=== PATIENT | male | born 2000 | race Caucasian/White ===

== ENCOUNTER 2024-10-12 15:31 | Emergency (ER) | payer MEDICAID, SELFPAY ==
[2024-10-12 15:33] VITALS: BP 136/90; BMI 32.6
[2024-10-12 16:12] LABS: COVID-19 Antigen Negative (Negative)
--- NOTE | 2024-10-12 16:16 | ED.GENMED ---
History of Present Illness
General
Chief Complaint: Cold/Flu/URI Symptoms
Source: patient
Exam Limitations: none
Time Seen by Provider: 10/12/24 15:38
Nursing documentation reviewed up to this point in time: agreed with
History of Present Illness
History of Present Illness:
Patient to ED with complaint of fever, bodyaches, cough. States cough is causing vomiting. Symptoms started 2 days ago. To eD accompanied by family for eval.
Past History
Past History
ED Past Medical History: None
ED Past Surgical History: None
Review of Systems
Review of Systems
Allergies reviewed?: Yes
All Other Systems: ROS reviewed and negative except as documented in HPI and ROS
Constitutional: Reports fever, fatigue and other (Generalized body aches.)
EENT: Reports no symptoms
Respiratory: Reports cough
Cardiac: Reports no symptoms
ABD/GI: Reports no symptoms
: Reports no symptoms
Musculoskeletal: Reports no symptoms
Skin: Reports no symptoms
Neurological: Reports no symptoms
Psychiatric: Reports no symptoms
Phy Exam
General Physical Exam
General Presentation: mild distress
General age: appears stated age
General Skin: warm and dry
General Habitus: normal
General Mental: alert
ENT Exam
ENT Exam: EOMI, pharynx normal, normocephalic and swallowing well
Cardiovascular Exam
Cardiovascular Exam: regular rate/rhythm
Pulmonary Exam
Pulmonary Exam: lungs clear and no respiratory distress
Gastrointestinal Exam
Gastrointestinal Exam: non tender and soft
Musculoskeletal Exam
Musculoskeletal Exam: full ROM and neuro vasc intact
Skin Exam
Skin Exam: normal color, warm/dry and no rash
Psychiatric Exam
Psychiatric Exam: normal mood/affect
Course
Orders/Labs/Results
Orders:
Orders
10/12/24 15:44
COVID-19 Antigen Urgent
Source: Nasal Swab
Influenza A+B Rapid Molecular Urgent
CHLOE Source: Nasal Swab
Specimen Description:
10/12/24 16:09
CR Chest - 2 Views Urgent
Comment:
Reason For Exam: fever, cough
10/12/24 16:15
Oseltamivir Phosphate [Tamiflu] 75 mg PO NOW STA
Vital Signs
Initial and Last Documented VS:
Initial Vital Signs
Pulse Resp BP Pulse Ox
121 18 136/90 98
10/12/24 15:33 10/12/24 15:33 10/12/24 15:33 10/12/24 15:33
Last Documented Vital Signs
Temp Pulse Resp BP Pulse Ox
99.0 F 99 18 127/72 98
10/12/24 15:49 10/12/24 16:31 10/12/24 16:31 10/12/24 16:31 10/12/24 16:31
*Radiology
Radiology exam reviewed: radiology read reviewed
*Pulse Oximetry
Patient hypoxic: no
*Critical Care Note
Total Time (30-74mins, 75-104mins- exclusive of procedures): Not Applicable
Update Note
Update Note:
Patient to ED with complaint of fever, bodyaches, cough. Influenza B pos. WIll start tamiflu. CXR reviewed. No pnuemonia noted. VSS, no hypoxemia. He is discharged home. Given instructions on s/s to return to ED and he is agreeable to plan.
ED Attending Note
-
Portions of this chart may have been created with voice recognition software.� Occasional wrong word or��sound alike� substitutions may have occurred due to the inherent limitations of voice recognition software.
Discharge Plan
Departure
Patient Disposition: Home (Routine Discharge)
Date of Disposition: 10/12/24
Time of Disposition: 16:39
Patient with high blood pressure during this ER visit?: No
Condition: Good
Covid-19: Not Applicable
Discharge Problem:
Influenza B
Instructions: Fever, Adult (DC), Flu in adults - Discharge instructions
Prescriptions:
New
oseltamivir [Tamiflu] 75 mg capsule
75 mg PO BID 5 Days Qty: 10 0RF
No Action
sertraline 100 MG tablet
150 mg PO DAILY
dexmethylphenidate [Focalin] 10 MG tablet
10 mg PO .PRN ON SCHOOL DAYS
Tylenol
2 tab PO PRN PRN (Reason: SHEIKH)
aripiprazole 10 MG tablet
5 mg PO DAILY
Patient Comments:
pt released from [facility] Mother can not afford med
Referrals:
Raj Sahu MD [Family Provider] - Follow up in 2-3 days
Interventions
Interventions:
*Risk Screen - Suicide Last Done: 10/12/24 15:33
*General Assessment Last Done: 10/12/24 15:33
*Neglect/Abuse Screening Last Done: 10/12/24 15:41
ED- Fall Risk Assessment Last Done: 10/12/24 15:49
*ED COVID-19 Vaccine History Last Done: 10/12/24 15:33
*Nursing Disposition Last Done: 10/12/24 16:43
ED- Pulmonary Assessment Last Done: 10/12/24 15:49
Discharge Date and Time
Discharge Date/Time: 10/12/24 16:44
Print Language: ITALIAN
[2024-10-12 16:31] VITALS: BP 127/72
[2024-10-12] MEDS: TAMIFLU 75 MG PO (16:36)
== END 2024-10-12 16:44 | disposition home or self-care (01) ==
LOC: EMR 15:31
PROVIDERS: EMERGENCY PHYSICIAN Emergency Medicine; FAMILY PHYSICIAN Internal Medicine
DX: J10.1 Influenza due to other identified influenza virus with other respiratory manifestations (principal); R11.10 Vomiting, unspecified; Z11.52 Encounter for screening for COVID-19; F90.9 Attention-deficit hyperactivity disorder, unspecified type; F32.A Depression, unspecified
CPT/HCPCS: 99283; 71046; 87502; 87811

== ENCOUNTER 2024-12-06 23:19 | Emergency (ER) | payer OTHER, SELFPAY ==
[2024-12-06 23:31] VITALS: BP 143/79
[2024-12-07 00:03] LABS: % Basophils 0.3 % (0-2); % Eosinophils 0.3 % (0-6); % Immature Granulocytes 0.5 % (0-0.5); % Lymphocytes 8.7 % (20.5-51.1); % Monocytes 1.3 % (1.7-9.3); % Neutrophils 88.9 % (42.2-75.2); Absolute Immature Granulocytes 0.1 10^3/uL (0-0.05); Absolute Lymphocytes 1.2 10^3/uL (1.2-3.4); Absolute Monocytes 0.2 10^3/uL (0.1-0.6); Absolute Neutrophils 11.7 10^3/uL (1.4-6.5); Hematocrit 43.4 % (39.0-52.0); Hemoglobin 14.7 g/dL (13.0-18.0); Mean Corp Hgb Conc. 33.9 g/dL (33.0-37.0); Mean Corpuscular Hgb 28.8 pg (27.0-31.0); Mean Corpuscular Volume 85.1 fL (80.0-94.0); Mean Platelet Volume 9.4 fL (7.4-10.4); Nucleated Red Blood Cells % 0 % (-); Platelet Count 206 10^3/uL (130-400); Red Cell Dist. Width 13.2 % (11.5-14.5); White Blood Cell Count 13.2 10^3/uL (4.8-10.8)
[2024-12-07 00:25] LABS: ALT (SGPT) 51 U/L (0-50); AST (SGOT) 40 U/L (17-59); Albumin 4.7 g/dl (3.5-5.0); Alkaline Phosphatase 78 U/L (38-126); Blood Urea Nitrogen 12 mg/dl (9-20); Calcium 9.8 mg/dl (8.4-10.2); Carbon Dioxide 27 mmol/L (22-30); Chloride 106 mmol/L (98-107); Glucose 114 mg/dl (70-99); Potassium 4.4 mmol/L (3.5-5.1); Sodium 144 mmol/L (135-145); Total Bilirubin 0.4 mg/dl (0.2-1.3); Total Protein 7.4 g/dl (6.3-8.2); eGFR > 60.00
[2024-12-07 00:33] LABS: NT-proBNP < 20.0 pg/ml; Troponin I < 0.012 ng/ml
[2024-12-07 00:41] VITALS: BP 146/70
--- NOTE | 2024-12-07 00:55 | ED.GENMED ---
History of Present Illness
General
Chief Complaint: Chest Pain
Source: patient and family
Exam Limitations: none
Time Seen by Provider: 12/07/24 00:39
Nursing documentation reviewed up to this point in time: agreed with
History of Present Illness
History of Present Illness:
24-year-old male accompanied by his mother presents with upper abdominal pain into his chest for about an hour had pizza for dinner, had an episode previously thought was reflux, pain did go into his back, no lower abdominal pain no fever chills,
mid upper abdomen goes to the right and left side,
Past History
Past History
ED Past Medical History: GERD (Never formally diagnosed) and Psychiatric
ED Past Surgical History: None
Social History
Tobacco: Non-smoker
Alcohol: None
Drug: None
Personal: Single
Living: with family
Employment: Not employed
Review of Systems
Review of Systems
All Other Systems: Not applicable
Constitutional: Denies fever or fatigue
EENT: Reports no symptoms
Respiratory: Denies cough or trouble breathing
Cardiac: Reports chest pain
ABD/GI: Reports abdominal pain; Denies nausea or vomiting
: Reports no symptoms
Musculoskeletal: Reports no symptoms
Skin: Reports no symptoms
Neurological: Reports no symptoms
Phy Exam
Physical Exam
Physical Exam:
Physical Exam
General: no apparent distress, not acutely ill
Neck: No jaundice
Heart: s1/s2 regular rate and rhythm, no murmur. equal radial pulses.
Lungs: no acute respiratory distress. clear bilaterally
Abdomen: Tender in the epigastrium no lower abdominal tenderness
Neuro: alert and oriented. no focal neurological deficits
Skin: no rash
Psychiatric: well kept. interactive and cooperative
Extremities: no edema.
Scores
Heart Score for Chest Pain Patients
STEMI patient?: No
History: Slightly or Non-Suspicious
ECG: Normal
Age: </= 45 years
Risk Factors: No Risk Factors
Troponin: </= Normal Limit
Heart Score for Chest Pain Patients: 0
Heart Score Risk: 2.5% MACE over next 6 weeks
Course
Orders/Labs/Results
Orders:
Orders
12/06/24 23:23
EKG [Electrocardiogram (*1)] Urgent
Reason for Study: Chest Pain
12/06/24 23:36
Electrocardiogram (*1) Urgent
Reason for Study: Other
Other Reason for Exam: Respiratory Distress
Cardiac Monitoring- Treatment ONCE
EKG- Treatment ONCE
O2 Therapy [RESP] Urgent
Titrate/Wean O2 to maintain O2 sat greater than (%): 93
Special Instructions: TO MAINTAIN CONTINUOUS O2 SATS >/= 93%
Pulse Ox/cont/shift [RESP] Urgent
Quantity: 1
Special Instructions: continuous pulse ox
12/06/24 23:51
Complete Blood Count/With Diff Urgent
Comprehensive Metabolic Panel Urgent
Lipase Urgent
Comment: ADD ON
NT-proBNP Urgent
Troponin I Urgent
12/07/24 00:00
CR Chest - 2 Views Urgent
Reason For Exam: respiratory distress
12/07/24 00:50
Mag Hydrox/Al Hydrox/Simeth [Maalox] 30 ml Phenobarb/Hyoscy/Atropine/Scop [] 10 ml Viscous Lidocaine 2% [Xylocaine Viscous Cup] 10 ml PO NOW
12/07/24 00:51
Add On- LAB Urgent
Tests Added?: lipase
Pantoprazole [Protonix] 40 mg PO NOW STA
US Abdomen Complete/Upper Urgent
Comment:
Reason For Exam: pain
12/07/24 00:54
Phenobarb/Hyoscy/Atropine/Scop [] 10 ml .ROUTE .STK-MED ONE
12/07/24 00:55
Mag Hydrox/Al Hydrox/Simeth [Maalox] 30 ml .ROUTE .STK-MED ONE
Viscous Lidocaine 2% [Xylocaine Viscous Cup] 15 ml .ROUTE .STK-MED ONE
Abnormal Lab Results
12/06/24
23:51
WBC 13.2 H 10^3/uL
(4.8-10.8)
Abs Immat Gran (auto) 0.1 H 10^3/uL
(0-0.05)
Absolute Neuts (auto) 11.7 H 10^3/uL
(1.4-6.5)
Neutrophils % 88.9 H %
(42.2-75.2)
Lymphocytes % 8.7 L %
(20.5-51.1)
Monocytes % 1.3 L %
(1.7-9.3)
Glucose 114 H mg/dl
(70-99)
ALT 51 H U/L
(0-50)
12/06/24 23:51
12/06/24 23:51
Vital Signs
Initial and Last Documented VS:
Initial Vital Signs
Temp Pulse Resp BP Pulse Ox
99.3 F 107 20 143/79 97
12/06/24 23:31 12/06/24 23:31 12/06/24 23:31 12/06/24 23:31 12/06/24 23:31
Last Documented Vital Signs
Temp Pulse Resp BP Pulse Ox
99.3 F 94 25 142/83 97
12/06/24 23:31 12/07/24 01:00 12/07/24 01:00 12/07/24 01:00 12/07/24 01:08
*Radiology
Radiology exam reviewed: radiology read reviewed
*Pulse Oximetry
Patient hypoxic: no
*EKG
Interpreted by ED Provider?: Yes
Interpretation: normal
Comparison EKG: no comparison EKG present
Heart Rate: 78
Rate: normal
Rhythm: sinus
Ischemia: no ischemia
*Critical Care Note
Total Time (30-74mins, 75-104mins- exclusive of procedures): Not Applicable
Update Note
Update Note:
2:12 AM labs noted ultrasound report noted chest x-ray noted patient feeling better no lower abdominal pain, placed on a bland diet with PPI
ED Attending Note
-
Portions of this chart may have been created with voice recognition software.� Occasional wrong word or��sound alike� substitutions may have occurred due to the inherent limitations of voice recognition software.
Discharge Plan
Departure
Patient Disposition: Home (Routine Discharge)
Date of Disposition: 12/07/24
Time of Disposition: 02:12
Patient with high blood pressure during this ER visit?: No
Condition: Good
Covid-19: Not Applicable
Discharge Problem:
Chest pain due to gastrointestinal reflux disease
Instructions: Acid Reflux and GERD in Adults (DC), Chest Pain PCP Follow Up
Prescriptions:
New
pantoprazole [Protonix] 40 mg tablet,delayed release (DR/EC)
40 mg PO DAILY Qty: 30 0RF
No Action
sertraline 100 MG tablet
150 mg PO DAILY
dexmethylphenidate [Focalin] 10 MG tablet
10 mg PO .PRN ON SCHOOL DAYS
Tylenol
2 tab PO PRN PRN (Reason: SHEIKH)
aripiprazole 10 MG tablet
5 mg PO DAILY
Patient Comments:
pt released from [facility] Mother can not afford med
oseltamivir [Tamiflu] 75 mg capsule
75 mg PO BID 5 Days Qty: 10 0RF
Referrals:
Raj Sahu MD [Family Provider] -
Manisha Hassan DO [Active] - Follow up in 10 days
Interventions
Interventions:
*Risk Screen - Suicide Last Done: 12/06/24 23:31
*General Assessment Last Done: 12/06/24 23:31
*Neglect/Abuse Screening Last Done: 12/06/24 23:31
*ED- Fall Risk Assessment Last Done: 12/06/24 23:31
*ED COVID-19 Vaccine History Last Done: 12/06/24 23:31
ED- Cardiac Assessment Last Done: 12/07/24 01:08
Discharge Date and Time
Print Language: SWEDISH
[2024-12-07 01:00] VITALS: BP 142/83
[2024-12-07] MEDS: PROTONIX 40 MG PO (01:00)
[2024-12-07] MEDS: MAALOX 50 PO (01:02)
[2024-12-07 01:07] VITALS: BMI 33.3
[2024-12-07 01:26] LABS: Lipase 34 U/L (23-300)
== END 2024-12-07 02:38 | disposition home or self-care (01) ==
LOC: EMR 23:19
PROVIDERS: Student in an Organized Health Care Education/Training Program; EMERGENCY PHYSICIAN Emergency Medicine; FAMILY PHYSICIAN Internal Medicine
DX: K21.9 Gastro-esophageal reflux disease without esophagitis (principal)
CPT/HCPCS: 99285; 71046; 76700; 80053; 83690; 83880; 84484; 85025; 93005